=== PATIENT | male | born 1970 | race Two or more races ===

== ENCOUNTER 2022-05-18 09:41 | Emergency (ER) | payer SELFPAY ==
--- NOTE | 2022-05-18 09:46 | HMH.EDGENADL ---
Discharge Plan Disposition Patient Disposition: Home, Self-Care Prescriptions Prescriptions: New ibuprofen 800 mg tablet 800 mg PO TID PRN (Reason: pain) 7 Days Qty: 20 0RF cyclobenzaprine 5 mg tablet 5 mg PO TID PRN (Reason: muscle spasm) 5 Days Qty: 15 0RF Referrals Follow up/Referrals: Provider,Referral, [Primary Care Provider] - See instructions Clinical Impressions Clinical Impression: Strain of lumbar region Instructions Patient Instructions: DI for Low Back Pain Discharge ED Provider: Maria Esther Velez General Adult HPI General Chief complaint: Back Pain/Injury Stated complaint: back pain Time Seen by Provider: 05/18/22 09:46 History of Present Illness HPI narrative: 51-year-old male presenting with his significant other history 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 Patient states that he has had chronic back pain but it worsened yesterday with no specific mechanism of injury no trauma specifically. Denies any history of diabetes, injection drug use, cancer, lower extremity weakness, bowel or bladder incontinence, urinary retention, saddle anesthesia. Patient denies any significant past medical history does not take any medications prior to today. He states his pain is primarily located in his lumbar spine midline and paraspinal area. Related Data Previous Rx's Medication Instructions Recorded cyclobenzaprine 5 mg tablet 5 mg PO TID PRN muscle spasm 5 05/18/22 days #15 tabs ibuprofen 800 mg tablet 800 mg PO TID PRN pain 7 days #20 05/18/22 tabs Allergies Allergy/AdvReac Type Severity Reaction Status Date / Time No Known Allergies Allergy Verified 05/18/22 10:02 [facility] Disclaimer: The information contained in this section may have been updated after the patient was seen, as this information can be updated by other users. Social History Smoking Status: Never smoker alcohol intake: never current occupational status: other Travel in the last 8 weeks: None ROS Obtained: Yes All systems reviewed & no additional complaints except as documented Physical Exam General General appearance: alert and in no apparent distress Respiratory Respiratory exam: Absent respiratory distress Cardiovascular Cardiovascular exam: Absent tachycardia Back Exam Back exam: Present other (Midline lumbar spine tenderness but primary tenderness over the paraspinal musculature, paraspinal musculature is also very tight on exam) Neurological Exam Neurological exam: Present other (Bilateral lower extremity strength is normal sensory exam is normal) Medical Decision Making Loi Inquiry Pt receiving controlled substance: No Vital Signs: 05/18/22 09:58 05/18/22 10:00 Temperature 97.9 F Temperature Source Oral Pulse Rate 74 Pulse Rate [Right Radial] 75 Respiratory Rate 18 Blood Pressure 160/84 H Blood Pressure [Right Arm] 166/80 H Blood Pressure Mean 109 Blood Pressure Mean [Right Arm] 108 Blood Pressure Source [Right Arm] Automatic Cuff Blood Pressure Position [Right Arm] Sitting 02 Sat by Pulse Oximetry 99 98 Oxygen Delivery Method Room Air Room Air Orders (Tests/Meds): ED MEDICATIONS Discontinued Medications Generic Name Dose Route Start Last Admin Trade Name Freq PRN Reason Stop Dose Admin Acetaminophen 1,000 mg 05/18/22 09:56 05/18/22 10:06 Acetaminophen 500mg Tab PO 05/18/22 09:57 1,000 mg ONCE ONE Administration Diazepam 5 mg 05/18/22 09:56 05/18/22 10:06 Diazepam 5mg Tablet PO 05/18/22 09:57 5 mg ONCE ONE Administration Ibuprofen 800 mg 05/18/22 09:56 05/18/22 10:05 Ibuprofen 400 Mg Tablet PO 05/18/22 09:57 800 mg ONCE ONE Administration ORDERS Category Date Time Status XR lumbar spine 2-3V Stat Exams 05/18/22 09:57 Taken Medical Decision Narrative: 51-year-old previously healthy presents with acute on chronic back pain that is consistent most likely with lumbos
--- NOTE | 2022-05-18 09:57 | XR_ITS ---
FINAL REPORT CLINICAL HISTORY: Pt injured lwr back lifting just [employer]GER, pt states he has pain in his Lt flank/LBP w pain on inspiration. FINDINGS: LUMBAR SPINE Three views were obtained. There is no acute fracture. There is no malalignment. Vertebrae are normal height. There is moderately advanced disc space narrowing at L5-S1. There is endplate sclerosis. There are hypertrophic changes in the lower lumbar facets. There is no soft tissue abnormality. IMPRESSION: No acute bony abnormality. Advanced changes of degenerative disc disease at L5-S1. Reviewed, Interpreted and Dictated by Paulie Guerrero MD Transcribed by Batool Hoffman Authenticated and [facility]
[2022-05-18 09:58] VITALS: BP 166/80; PULSE 75; RESP 18; TEMP 36.6; O2SAT 99; BMI 27.3
[2022-05-18 10:00] VITALS: BP 160/84; PULSE 74; O2SAT 98
[2022-05-18 10:56] VITALS: BP 123/81; PULSE 66; RESP 16; TEMP 36.6; O2SAT 99
== END 2022-05-18 10:59 | disposition home or self-care (01) ==
PROVIDERS: Emergency Provider Student in an Organized Health Care Education/Training Program
DX: S33.5XXA Sprain of ligaments of lumbar spine, initial encounter (principal); X58.XXXA Exposure to other specified factors, initial encounter
CPT/HCPCS: 72100; 99283; 99284